=== PATIENT | male | born 1980 | race Caucasian/White ===

== ENCOUNTER 2024-01-10 12:05 | Emergency (ER) | payer OTHER, SELFPAY ==
[2024-01-10 12:12] VITALS: BP 143/116; PULSE 82; RESP 22; TEMP 36.6
--- NOTE | 2024-01-10 12:28 | ED.GENADUL_ITS ---
Discharge Plan Disposition Patient Disposition: Home Condition: Stable Discharge Details Clinical Impression: Diarrhea, Nausea & vomiting Primary Care Provider: Unknown,Unknown ED Provider: Meredith Burdick Home Meds and New Rx's Prescriptions: New ondansetron 4 mg tablet,disintegrating 4 mg PO Q6H PRNQty: 20 0RF No Action lisinopril-hydrochlorothiazide 20-25 mg tablet 1 tab PO DAILY sertraline 200 mg capsule 200 mg PO DAILY omeprazole 20 mg capsule,delayed release(DR/EC) 20 mg PO DAILY atorvastatin 20 mg tablet 20 mg PO DAILY Discharge Instructions Instructions: Nausea and Vomiting, Adult ED HPI General Date/Time Provider Initiated Documentation: 01/10/24 12:22 . Limitations to Documentation: physical limitation . Information obtained by: patient . HPI Narrative: 43-year-old gentleman without significant past medical history presents for evaluation of vomiting and diarrhea. He reports onset of symptoms this morning when he woke up. He states that he was not feeling well. He had diarrhea at that time. He states that on his way to work he started vomiting. Initially he felt better after vomiting, but now he feels like he cannot stop vomiting. He reports multiple episodes of vomiting he has not been able to tolerate anything by mouth. He reports that he has had 1 additional episode of diarrhea. He reports some cramping abdominal pain that is relieved with the vomiting. No known sick contacts. No unusual foods. Denies any drug or alcohol use. Related Data Home Medications Medication Instructions Recorded Confirmed atorvastatin 20 mg tablet 20 mg PO DAILY 01/10/24 01/10/24 lisinopril 20 1 tab PO DAILY 01/10/24 01/10/24 mg-hydrochlorothiazide 25 mg tablet omeprazole 20 mg capsule,delayed 20 mg PO DAILY 01/10/24 01/10/24 release ondansetron 4 mg disintegrating 4 mg PO Q6H PRN #20 tabs 01/10/24 tablet sertraline 200 mg capsule 200 mg PO DAILY 01/10/24 01/10/24 Previous Rx's Medication Instructions Recorded ondansetron 4 mg disintegrating 4 mg PO Q6H PRN #20 tabs 01/10/24 tablet Allergies Allergy/AdvReac Type Severity Reaction Status Date / Time No Known Allergies Allergy Verified 01/10/24 12:33 General Stated Complaint: Nausea/Vomit/Diar ANDERS: 3 Exam Narrative Exam Narrative: Review of Systems: All systems reviewed & are unremarkable except as noted in HPI and below Well-developed,+actively vomiting NCAT PERRL, normal conjunctiva RRR Unlabored respiratory effort, CTAB Nondistended abdomen , soft, nontender Extremities w/o deformity, no cyanosis, no edema No rashes or lesions. no focal neurologic deficits Appropriate mood and affect Course Vital Signs Vital signs: Vital Signs Temperature 36.6 C 01/10/24 12:12 Pulse 82 01/10/24 12:12 Respiratory Rate 22 01/10/24 12:12 Blood Pressure 143/116 H 01/10/24 12:12 Temperature 36.6 C 01/10/24 12:12 Temperature Source Tympanic 01/10/24 12:12 Pulse 82 01/10/24 12:12 Respiratory Rate 22 01/10/24 12:12 Blood Pressure 143/116 H 01/10/24 12:12 Blood Pressure Position Sitting 01/10/24 12:12 Oxygen Delivery Method Room Air 01/10/24 12:12 Oxygen Flow Rate 0 01/10/24 12:12 Pain Level 9 01/10/24 12:12 Comment took omeprazole this morning 01/10/24 12:12 Medical Decision Making Emergent evaluation of acute vomiting and diarrhea. Initial differential includes gastroenteritis, foodborne illness, viral illness. Also consider pancreatitis. Given lack of focality and abdominal pain, less likely acute intra-abdominal emergency. Patient is hemodynamically stable. Plan for lab work, IV fluid resuscitation and medication for symptom improvement. Patient had some additional vomiting, so IV droperidol was given. This resulted in resolution of the symptoms. I reviewed and independently interpreted his blood work there is no elevation in his white blood cell count. No anemia. He has a slightly elevated anion gap and was resuscitated with IV fluids. Magnesium was slightly low and this was repleted via IV. Bilirubin is slightly elevated, but I doubt an acute hepatobiliary process. On reevaluation, the patient's symptoms have completely resolved, there is no abdominal pain or tenderness. He is tolerating p.o. I suspect likely a viral illness or gastroenteritis of some chronic. The patient will be discharged home with a prescription for Zofran to take as needed. Strict return precautions advised. Medical Records Medical records reviewed: Yes I reviewed the patient's medical records. Quality:[facility] Health Related Social Needs: No Data to Display PFSH All Active Problems (Updated 01/10/24 @ 14:36 by Meredith Burdick MD) Nausea & vomiting (Acute) Diarrhea (Acute) Social History Smoking/Tobacco Use Status: Former Tobacco Use Smoking risk assessment performed?: Yes Alcohol Intake: current Alcohol Intake frequency: a few times a week Alcohol type: beer Drug use: Socially Substance use type: marijuana Details: Pt used to chew tobacco; states he no longer does 01/10/24 Do you feel safe at home: Yes Do you feel safe in your relationship?: Yes
[2024-01-10 12:31] VITALS: O2SAT 100
[2024-01-10 12:32] VITALS: BP 115/71; PULSE 78; O2SAT 100
[2024-01-10 12:33] VITALS: BP 116/71; PULSE 82; RESP 22; TEMP 36.6; O2SAT 100
[2024-01-10 12:40] VITALS: O2SAT 100
[2024-01-10 12:41] LABS: Abs Immature Grans 0.03 10^3/uL (0.0-0.06); Absolute Basophil Count 0.04 10^3/uL (0.0-0.2); Absolute Eosinophil Count 0.02 10^3/uL (0.0-0.7); Absolute Lymphocyte Count 1.17 10^3/uL (1.2-3.4); Absolute Monocyte Count 0.81 10^3/uL (0.1-0.8); Absolute Neutrophil Count 7.96 10^3/uL (1.2-6.7); Basophils % 0.4 %; Eosinophils % 0.2 %; HCT 40.4 % (40.0-50.0); HGB 14.9 g/dL (13.5-17.5); Immature Grans % 0.3 %; Lymphocytes % 11.7 %; MCHC 36.9 % (32.0-36.0); MCV 82 fL (80-95); Monocytes % 8.1 %; Neutrophils % 79.3 %; Platelet Count 361 10^3/uL (130-400); RBC 4.96 10^6/uL (4.36-5.78); RDW 11.9 % (11.8-14.1); WBC 10.03 10^3/uL (4.4-10.8)
[2024-01-10] MEDS: Ketorolac 15 MG/ML VIAL 10 MG IVP (12:43)
[2024-01-10] MEDS: Normal Saline 1,000 ML 1000 ML IV (12:43)
[2024-01-10] MEDS: Ondansetron 4 MG/2 ML VIAL 8 MG IVP (12:43)
[2024-01-10 12:46] VITALS: BP 141/93; O2SAT 98
[2024-01-10 12:53] LABS: ALT 31 U/L (16-63); AST 24 U/L (15-37); Albumin 4.8 g/dL (3.4-5.0); Alkaline Phosphatase 68 U/L (46-116); Anion Gap 14.6 mmol/L (3-11); BUN 13 mg/dL (7-18); Bilirubin, Total 1.31 mg/dL (0.2-1.0); CO2 23.4 mmol/L (21.0-32.0); CREATININE 1.2 mg/dL (0.70-1.30); Calcium 10.4 mg/dL (8.5-10.1); Chloride 99 mmol/L (98-107); Estimated GFR 77.43 (mL/min/1.73m2); Glucose 134 mg/dL (74-106); Lipase 28 U/L (16-77); Magnesium 1.5 mg/dL (1.8-2.4); Potassium 3.5 mmol/L (3.5-5.1); Sodium 137 mmol/L (136-145); Total Protein 8.8 g/dL (6.4-8.2)
[2024-01-10] MEDS: Droperidol 5 MG/2 ML VIAL IVP (13:09)
[2024-01-10] MEDS: MAGNESIUM SULFATE 2 GM/50 ML BAG IVINF (13:15)
== END 2024-01-10 14:51 | disposition home or self-care (01) ==
PROVIDERS: Emergency Provider Emergency Medicine
DX: R10.13 Epigastric pain (principal); R11.10 Vomiting, unspecified; R19.7 Diarrhea, unspecified; Z87.891 Personal history of nicotine dependence
CPT/HCPCS: 36415; 80053; 83690; 96361; 96365; 96375; 99284; 83735; 85025; J1790; J1885; J2405; J3475